=== PATIENT | female | born 1985 | race Caucasian/White ===

== ENCOUNTER → 2021-02-13 | Outpatient (CLI) | payer BC | LOC: MAMMO 12:36 | DX: N63.10 Unspecified lump in the right breast, unspecified quadrant (principal); N63.20 Unspecified lump in the left breast, unspecified quadrant | CPT/HCPCS: 15989; 15990; A4648 ==

== ENCOUNTER → 2022-05-21 | Outpatient (CLI) | payer BC | LOC: MAMMO 12:26 | DX: N63.10 Unspecified lump in the right breast, unspecified quadrant (principal); N63.20 Unspecified lump in the left breast, unspecified quadrant ==